=== PATIENT | male | born 1995 | race Caucasian/White ===

== ENCOUNTER 2017-10-09 02:14 | Emergency (ER) | payer BC ==
[2017-10-09] MEDS ORDERED: ESCI20TA38 PO (02:21)
--- NOTE | 2017-10-09 02:35 | ER Report ---
History and Physical Time Seen By MD: 02:32 Hx. of Stated Complaint: PATIENT STATES HAD TONSILLS OUT ON THE , HE STATES HIS SCABS HAVE BEEN FALLING OFF, HE STATES THIS MORNING HE PIT OUT 3 BIG CLOTS, THEN IT SUBSIDED AND THEN THIS EVENING HE SPIT OUT A CLOT AND HAS BEEN BLEEDING FOR ABOUT AN HOUR. HPI/ROS CHIEF COMPLAINT: Bleeding postoperative tonsillectomy HISTORY OF PRESENT ILLNESS: This is a 22-year-old male. He had his tonsils removed on September 29, and this was done in [place]. 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 He is at the point yesterday where the scabs have been falling off. In the morning he spit out 3 big clots and had some bleeding but then it subsided. In the evening he spit out another clot the knees been bleeding since then. Bleeding seems to have waxed and waned but it has not completely gone away since this last episode so he came to the ER. His father is a physician and recommended coming in, hopefully to get some topical treatment such as epinephrine to see if this could stop the bleeding. Other than this, he has had an uneventful postoperative course. The only medication he is taking his Lexapro. He is not on any blood thinners. He has been taking large amounts of ibuprofen to help with the pain. He also has a tablet of oxycodone available to use for pain relief. Ativan prescription of 20 tablets he is used 9 of these so far since the . REVIEW OF SYSTEMS: Respiratory: No shortness of breath or respiratory distress. Cardiovascular: No chest pain, no palpitations. Gastrointestinal: No nausea this time, no abdominal pain. Neurological: No dizziness. Musculoskeletal: No musculoskeletal pain. Skin: No bruising. Allergies: Coded Allergies: No Known Drug Allergies (Unverified , 10/09/17) Home Meds Reported Medications Escitalopram Oxalate (LEXAPRO) 20 Mg Tablet, 10 MG PO QDAY, TAB 10/09/17 Reviewed Nurses Notes: Yes Hx Substance Use Disorder: No Constitutional Vital Sign - Last 24 Hours 10/09/17 10/09/17 10/09/17 10/09/17 02:17 02:29 02:30 02:44 Pulse 77 75 ??? Resp 16 B/P (MAP) 138/90 118/72 (87) Pulse Ox 96 92 95 O2 Delivery Room Air 10/09/17 10/09/17 10/09/17 10/09/17 03:00 03:30 03:35 03:50 Pulse 84 79 B/P (MAP) 143/88 (106) 125/66 (85) 10/09/17 10/09/17 10/09/17 10/09/17 03:55 04:00 04:10 04:25 Pulse 123 74 78 B/P (MAP) 146/65 (92) Pulse Ox 95 97 10/09/17 04:30 Pulse ??? B/P (MAP) 134/77 (96) Pulse Ox 86 Physical Exam General Appearance: The patient is alert. No acute distress. No need for airway protection and no evidence of respiratory distress at this time. ENT: Normal oral mucosa. Posterior oropharynx shows the [place] postoperative appearance after tonsillectomy with the exception of in the right posterior fossa, there is clot and active oozing of red blood in this area. It is a small amount of blood but a fairly large clot. Neck: Neck is supple and non tender. Respiratory: Breathing easily, no distress. No evidence of problems with the airway. Cardiac: regular rate and rhythm Skin: No bruising. DIFFERENTIAL DIAGNOSIS: After history and physical exam differential diagnosis was considered for a patient with postoperative bleeding after tonsillectomy. He is on about postop day 9 now which is a usual timeframe for a secondary postoperative bleeding after tonsillectomy as a fibrin clot sloughs off. We will go ahead and attempt some topical atomized epinephrine and ice water to see if this will cause some vasoconstriction and stop the bleeding. Medical Decision Making Data Points Result Diagram: 10/09/17 0342 Laboratory Hematology Test 10/09/17 03:42 Red Blood Count 4.51 M/uL (4.00-5.60) Mean Corpuscular Volume 87.9 fL (80.0-96.0) Mean Corpuscular Hemoglobin 31.3 pg (26.0-33.0) Mean Corpuscular Hemoglobin Concent 35.6 g/dL (32.0-36.0) Red Cell Distribution Width 12.7 % (11.5-14.5) Mean Platelet Volume 8.7 fL (7.2-11.1) Neutrophils (%) (Auto) 52.5 % (39.4-72.5) Lymphocytes (%) (Auto) 35.9 % (17.6-49.6) Monocytes (%) (Auto) 9.6 % (4.1-12.4) Eosinophils (%) (Auto) 1.2 % (0.4-6.7) Basophils (%) (Auto) 0.8 % (0.3-1.4) Nucleated RBC Relative Count (auto) 0.0 /100WBC Neutrophils # (Auto) 4.0 K/uL (2.0-7.4) Lymphocytes # (Auto) 2.7 K/uL (1.3-3.6) Monocytes # (Auto) 0.7 K/uL (0.3-1.0) Eosinophils # (Auto) 0.1 K/uL (0.0-0.5) Basophils # (Auto) 0.1 K/uL (0.0-0.1) Nucleated RBC Absolute Count (auto) 0.00 K/uL Prothrombin Time 13.9 seconds (12.0-14.4) Prothromb Time International Ratio 1.06 Activated Partial Thromboplast Time 34 seconds (23-35) Chemistry Test 10/09/17 03:42 White Blood Count 7.6 k/uL (4.5-11.0) Red Blood Count 4.51 M/uL (4.00-5.60) Hemoglobin 14.1 g/dL (14.0-18.0) Hematocrit 39.7 % (42.0-52.0) Mean Corpuscular Volume 87.9 fL (80.0-96.0) Mean Corpuscular Hemoglobin 31.3 pg (26.0-33.0) Mean Corpuscular Hemoglobin Concent 35.6 g/dL (32.0-36.0) Red Cell Distribution Width 12.7 % (11.5-14.5) Platelet Count 201 K/uL (150-450) Mean Platelet Volume 8.7 fL (7.2-11.1) Neutrophils (%) (Auto) 52.5 % (39.4-72.5) Lymphocytes (%) (Auto) 35.9 % (17.6-49.6) Monocytes (%) (Auto) 9.6 % (4.1-12.4) Eosinophils (%) (Auto) 1.2 % (0.4-6.7) Basophils (%) (Auto) 0.8 % (0.3-1.4) Nucleated RBC Relative Count (auto) 0.0 /100WBC Neutrophils # (Auto) 4.0 K/uL (2.0-7.4) Lymphocytes # (Auto) 2.7 K/uL (1.3-3.6) Monocytes # (Auto) 0.7 K/uL (0.3-1.0) Eosinophils # (Auto) 0.1 K/uL (0.0-0.5) Basophils # (Auto) 0.1 K/uL (0.0-0.1) Nucleated RBC Absolute Count (auto) 0.00 K/uL Prothrombin Time 13.9 seconds (12.0-14.4) Prothromb Time International Ratio 1.06 Activated Partial Thromboplast Time 34 seconds (23-35) Coagulation Test 10/09/17 03:42 Prothrombin Time 13.9 seconds Prothromb Time International Ratio 1.06 Activated Partial Thromboplast Time 34 seconds ED Course/Re-evaluation Clinical Indication for ER IV: IV Access ED Course Atomized epinephrine was used, 1 mL atomized over the course of about 5 minutes in small amounts. The bleeding did slow down with this. We then had him do some gentle gargling with some ice water. On re-evaluation, the patient had a clot that broke loose and the bleeding restarted. The bleeding was more brisk now, but still not a dangerous amount. We had an IV placed and the patient had a CBC, PT/PTT and type and screen done. We gave a 1000mg dose of TXA by IV piggyback over 30 minutes. Called our surgeon, Dr. Hutton, and discussed briefly with him. After our discussion, I called and spoke with Dr. Hearn, the ER physician at [facility]. I explained the situation and the treatment given so far as well as my request to transfer the for further treatment and care where ENT is available since we do not have ENT and treatment so far had resulted in some worsening, although not yet at the catastrophic level and would like to avoid that. He accepted the patient. The patient had requested to go by private vehicle and wanted to go the [facility]. We discussed the risks associated with private vehicle transfer and I recommended ambulance; however he does not want the cost of this. He did sign a refusal for the ambulance transfer and will be going by private vehicle. See the AMA form for details. Decision to Disposition Date: October 09, 2017 Decision to Disposition Time: 04:23 Transfer Facility Patient was transferred to [facility] via private vehicle after patient refusal of ambulance. The transfer was emergent, and was required because the capabilities of the receiving hospital. Consent for transfer was obtained from the patient, patient prefers to go to [facility] for care. See EMTALA for transfer orders. Depart Departure Latest Vital Signs Vital Signs Date Time Temp Pulse Resp B/P (MAP) Pulse Ox O2 Delivery O2 Flow Rate FiO2 10/09/17 04:30 ??? 134/77 (96) 86 10/09/17 02:17 16 Room Air Impression: Primary Impression: Postoperative haemorrhage of tonsil Condition: Improved Disposition: XFER TO [facility] (patient going by private vehicle) RODRIGO VILLALTA MD October 09, 2017 02:35
[2017-10-09] MEDS ORDERED: ENT KIT TP ONE (02:40)
[2017-10-09] MEDS ORDERED: ENT KIT ONE (02:42)
[2017-10-09] MEDS ORDERED: TRANEXAMIC AC 1000 MG/10ML SDV 1,000 MG in NS(*) 0.9% 50 ML BAG 50 ML IVPB ONE (03:25)
[2017-10-09 03:48] LABS: PLATELET COUNT, AUTOMATED 201 K/uL (150-450)
[2017-10-09 03:58] LABS: INR 1.06
[2017-10-09 04:30] VITALS: BP 134/77
[2017-10-09] MEDS ORDERED: EPINEPHrine 0.1% NA SOL 30 ML ONE (04:41)
== END 2017-10-09 04:34 | disposition short-term general hospital (02) ==
LOC: ER 02:30
DX: K91.840 Postprocedural hemorrhage of a digestive system organ or structure following a digestive system procedure (principal)
CPT/HCPCS: 85025; 85610; 85730; 86850; 86900; 86901; 96365; 99285; J7050